=== PATIENT | male | born 1970 | race Caucasian/White ===

== ENCOUNTER 2018-01-30 19:55 | Emergency (ER) | payer MEDICAID, OTHER ==
[2018-01-30] MEDS: DIPHTH/TET/ACEL PERTUSS (ADULT) 0.5 ML VIAL IM (21:01)
[2018-01-30] MEDS: LIDOCAINE 1% (MDV) 10 ML INJ INJ (21:01)
== END 2018-01-30 21:46 | disposition home or self-care (01) ==
LOC: FTE 19:55
DX: S41.111A Laceration without foreign body of right upper arm, initial encounter (principal); W26.8XXA Contact with other sharp object(s), not elsewhere classified, initial encounter; Y92.9 Unspecified place or not applicable; Z23 Encounter for immunization
CPT/HCPCS: 12002; 90471; 90715; 99283-25